=== PATIENT | female | born 1975 | race African-American/Black ===

== ENCOUNTER 2019-03-21 17:45 | Emergency (ER) | payer BC, OTHER ==
[~2019-03-21] VITALS: Ht 162.6 cm; Wt 81.6 kg
--- NOTE | 2019-03-21 18:13 | NUR ---
X-ray notified to page US tech
[2019-03-21] MEDS ORDERED: Ketorolac 30mg Inj IM ONE (18:15)
[2019-03-21 18:20] VITALS: BP 165/97
--- NOTE | 2019-03-21 18:21 | NUR ---
ED Nurse Note:pt. came with c/o heavy vaginal bleeding started this morning and abdominal cramping
--- NOTE | 2019-03-21 18:33 | Emergency Room Report ---
History of Present Illness General Chief Complaint: Female Urogenital Problems Source: Patient Present Illness HPI 43-year-old female with history of uterine fibroids here complaining of abnormal uterine bleeding x2 days. Patient reports that she has regular menses however this month her menses started 4 days ago and has been cramping excessively bleeding for the past 2 days. Patient reports that she constantly has to change her tampon and pads. Complains of headache however denies dizziness and lightheadedness. Denies all other associated symptoms. Denies nausea vomiting. Rating the pain 7 out of 10 without radiation. Denies any vaginal trauma, recent change of diet, reports that she last saw her equine breeder last year and the size of her fibroids have not increased. Denies . Allergies: Coded Allergies: No Known Allergies (Unverified , 03/21/19) Patient History Past Medical History: see triage record Past Surgical History: unable to obtain Pertinent Family History: none Last Menstrual Period: 02/21/2019 Now: No : 0 Para: 0 Immunizations: UTD Reviewed Nursing Documentation: PMH: Agreed; PSxH: Agreed Nursing Documentation-PMH Hx Cardiac Problems: No - Uterine Fibroids Hx Hypertension: Yes Review of Systems All Other Systems: negative except mentioned in HPI Physical Exam Vital Signs Date Time Temp Pulse Resp B/P (MAP) Pulse Ox O2 Delivery O2 Flow Rate FiO2 03/21/19 17:59 98.2 70 18 165/97 (119) 94 Room Air Sp02 EP Interpretation: reviewed, normal General Appearance: no apparent distress, alert, GCS 15, non-toxic Head: normocephalic, atraumatic Eyes: bilateral eye normal inspection, bilateral eye PERRL ENT: hearing grossly normal, normal pharynx, no angioedema, normal voice Neck: full range of motion, supple/symm/no masses Respiratory: chest non-tender, lungs clear, normal breath sounds, speaking full sentences Cardiovascular #1: regular rate, rhythm, no edema, no murmur Gastrointestinal: normal bowel sounds, non tender, soft, non-distended, no guarding, no rebound Rectal: deferred Genitourinary: normal inspection, no CVA tenderness Musculoskeletal: back normal, gait/station normal, normal range of motion, non- tender, no calf tenderness Neurologic: alert, oriented x3, responsive, motor strength/tone normal, sensory intact, speech normal Psychiatric: judgement/insight normal, memory normal, mood/affect normal, no suicidal/homicidal ideation Skin: no rash Lymphatic: no adenopathy Medical Decision Making PA Attestation All diagnoses and treatment plans were reviewed and discussed with my supervising physician Dr. Castaneda Diagnostic Impression: Primary Impression: Uterine fibroid ER Course 43-year-old female with history of uterine fibroids here complaining of abnormal uterine bleeding x2 days. Patient reports that she has regular menses however this month her menses started 4 days ago and has been cramping excessively bleeding for the past 2 days. Patient reports that she constantly has to change her tampon and pads. Complains of headache however denies dizziness and lightheadedness. Denies all other associated symptoms. Denies nausea vomiting. Rating the pain 7 out of 10 without radiation. Denies any vaginal trauma, recent change of diet, reports that she last saw her equine breeder last year and the size of her fibroids have not increased. Denies . Ddx considered but are not limited to: UTI, uterine fibroids, ovarian cyst, Vital signs: are WNL, pt. is afebrile H&PE are most consistent with: uterine fibroid ORDERS: UA, urine test, CBC, CMP, PT and PTT, pelvic ultrasound, ibuprofen, ferrous sulfate ED INTERVENTIONS: Toradol DISCHARGE: At this time pt. is stable for d/c to home. Will provide printed patient care instructions, and any necessary prescriptions. Care plan and follow up instructions have been discussed with the patient prior to discharge. Follow-up with her primary care provider and WRAPPING MACHINE HELPER for discussion regarding her fibroids the reason of your increased uterine bleeding is your fibroids I recommend that they discuss progesterone cream or injection or oral progesterone with your WRAPPING MACHINE HELPER CT/MRI/US Diagnostic Results CT/MRI/US Diagnostic Results : Imaging Test Ordered: pelvic US Impression multiple uterine fibroids FINDINGS: Uterus/cervix: Uterus measures 16.2 x 7.8 x 9.9 cm and contains multiple rounded masses compatible fibroids. 3. Pedunculated, largest of which measures 7.6 cm. One appears intramural/submucosal, measuring 6.4 cm. The endometrium measures 3.3 cm. Right ovary: Right ovary was not well seen, obscured by bowel gas. Left ovary: Left ovary is not well seen, obscured by bowel gas. Free fluid: No free fluid. Bladder: Unremarkable as visualized. Wall is normal thickness for degree of distention. Other findings: Imaging was performed by transabdominal approach. IMPRESSION: Enlarged, myomatous uterus with a thickened endometrial stripe. Ovaries were not well seen on this examination. Endovaginal ultrasound could be pursued in further evaluation if clinically warranted. Last Vital Signs Date Time Temp Pulse Resp B/P (MAP) Pulse Ox O2 Delivery O2 Flow Rate FiO2 03/21/19 18:20 98.2 70 18 165/97 98 Room Air Disposition: HOME, SELF-CARE Condition: Stable Scripts Ibuprofen* (MOTRIN*) 600 Mg Tablet 600 MG ORAL Q8H PRN for For Pain, #30 TAB 0 Refills Prov: Arvind Nicholas 03/21/19 Ferrous Sulfate* (FERROUS SULFATE*) 325 Mg Tablet 325 MG ORAL TWICE A DAY, #60 TAB 0 Refills Prov: Arvind Nicholas 03/21/19 Patient Instructions: Uterine Fibroids, [id number] Additional Instructions: Follow-up with her primary care provider and [employer] MACHINE HELPER for discussion regarding her fibroids the reason of your increased uterine bleeding is your fibroids I recommend that they discuss progesterone cream or injection or oral progesterone with your WRAPPING MACHINE HELPER. Return to the emergency room with worsening symptoms Arvind Nicholas Mar 21, 2019 18:33
--- NOTE | 2019-03-21 18:38 | NUR ---
ED Nurse Note:blood sent to labs, pt. refused toradol medication
[2019-03-21 18:53] LABS: BASOPHILS % (AUTO) 1.3 % (0.0-2.0); EOSINOPHILS % (AUTO) 2.7 % (0.0-3.0); HEMATOCRIT 36.8 % (37.0-47.0); HEMOGLOBIN 11.8 G/DL (12.0-16.0); LYMPHOCYTES % (AUTO) 33.6 % (20.0-45.0); MEAN CORPUSCULAR VOLUME 86 FL (80-99); MONOCYTES % (AUTO) 6.8 % (1.0-10.0); NEUTROPHILS % (AUTO) 55.5 % (45.0-75.0); PLATELET COUNT 286 K/UL (150-450); RED BLOOD COUNT 4.28 M/UL (4.20-5.40); WHITE BLOOD COUNT 6.1 K/UL (4.8-10.8)
--- NOTE | 2019-03-21 19:05 | NUR ---
ED Nurse Note: Received report from Ami ZURITA. Patient alert and oriented, verbally responsive. Breathing even and unlabored. afebrile. US done at bedside.
[2019-03-21 19:06] LABS: APPEARANCE,URINE CLOUDY; BILIRUBIN, URINE NEGATIVE (NEGATIVE); GLUCOSE, URINE (UA) NEGATIVE (NEGATIVE); KETONES,URINE NEGATIVE (NEGATIVE); LEUKOCYTE ESTERASE ,URINE 1+ (NEGATIVE); NITRITE,URINE NEGATIVE (NEGATIVE); PH,URINE 7 (4.5-8.0); PROTEIN,URINE 2+ (NEGATIVE); UROBILINOGEN,URINE NORMAL MG/DL (0.0-1.0)
[2019-03-21 19:08] LABS: ANION GAP 11 mmol/L (5-15); BLOOD UREA NITROGEN 11 mg/dL (7-18); CALCIUM 9.4 MG/DL (8.5-10.1); CARBON DIOXIDE 26 MMOL/L (21-32); CHLORIDE 107 MMOL/L (98-107); CREATININE 0.9 MG/DL (0.55-1.30); POTASSIUM 3.6 MMOL/L (3.5-5.1); SODIUM 144 MMOL/L (136-145)
[2019-03-21 19:09] LABS: COLOR,URINE RED
[2019-03-21 19:13] LABS: ALANINE AMINOTRANSFERASE 13 U/L (12-78); ALBUMIN 4.1 G/DL (3.4-5.0); ALBUMIN/GLOBULIN RATIO 1.1 (1.0-2.7); ALKALINE PHOSPHATASE 61 U/L (46-116); ASPARTATE AMINO TRANSFERASE < 5 U/L (15-37); BILIRUBIN,TOTAL 0.3 MG/DL (0.2-1.0)
[2019-03-21] MEDS ORDERED: Isovue-300 100ml vial INJ PRN (19:15)
[2019-03-21 19:25] VITALS: BP 140/80
[2019-03-21] MEDS ORDERED: IBUPROFEN600 MG ORAL (20:06)
[2019-03-21] MEDS ORDERED: FERROUS SULFAT325 MG ORAL (20:06)
[2019-03-21 20:21] VITALS: BP 140/80
--- NOTE | 2019-03-21 20:21 | NUR ---
ED Nurse Note: Pt cleared by health care Provider for discharge. DC instructions/prescription was given and explained to pt and verbalized understanding of teachings. All medical deviecs such as ID band and IV line removed. Pt is AAO x4, ambulatory and left with all personal belongings.
--- NOTE | 2019-03-21 20:44 | Diagnostic Imaging Report ---
EXAM: US Pelvis Complete, Transabdominal CLINICAL HISTORY: PAIN TECHNIQUE: Real-time transabdominal pelvic ultrasound (complete) with image documentation. COMPARISON: none FINDINGS: Uterus cervix: Uterus measures 16.2 x 7.8 x 9.9 cm and contains multiple rounded masses compatible fibroids. 3. Pedunculated, largest of which measures 7.6 cm. One appears intramural submucosal, measuring 6. 4 cm. The endometrium measures 3.3 cm. Right ovary: Right ovary was not well seen, obscured by bowel gas. Left ovary: Left ovary is not well seen, obscured by bowel gas. Free fluid: No free fluid. Bladder: Unremarkable as visualized. Wall is normal thickness for degree of distention. Other findings: Imaging was performed by transabdominal approach. IMPRESSION: Enlarged, myomatous uterus with a thickened endometrial stripe. Ovaries were not well seen on this examination. Endovaginal ultrasound could be pursued in further evaluation if clinically warranted.
== END 2019-03-21 20:21 | disposition home or self-care (01) ==
LOC: EMR 19:20
DX: D25.9 Leiomyoma of uterus, unspecified (principal); I10 Essential (primary) hypertension
CPT/HCPCS: 36415; 76856; 80053; 81001; 81025; 85025; 85610; 85730; 96372; 99284